=== PATIENT | male | born 1955 | race Caucasian/White ===

== ENCOUNTER 2019-05-08 14:35 | Emergency (ER) | payer SELFPAY ==
[2019-05-08 14:35] VITALS: BP 139/74; PULSE 91; RESP 16; TEMP 36.9; O2SAT 98; BMI 23.5
--- NOTE | 2019-05-08 14:42 | ED_ITS ---
HPI - Male Genitourinary <Amparo Sweeney PA-C - Last Filed: 05/08/19 20:54> General Chief complaint: Urogenital-Male Stated complaint: Left side pain blood in urine Time Seen by Provider: 05/08/19 14:41 Source: patient Mode of arrival: Ambulatory Limitations: no limitations History of Present Illness HPI Narrative: This 63-year-old male complains of onset of sharp, stabbing pain in his left flank last night, states this radiates around his side and down somewhat. He states that after the pain began, he started having hematuria, which has been consistent since. He states he has also had nausea but no vomiting. He states that pain has gotten progressively worse since yesterday. He states he does have dysuria and describes a sensation of sharp or ?gravel? when he urinates and has also had frequency and urgency since yesterday as well. He states the pain occurs throughout the urinary stream. He has not had any fever. He denies any other abdominal pain or back pain. No new injury. Denies chest pain or dyspnea or other new complaints on systems review. Patient notes that he is allergic to Cipro, Toradol, promethazine, no regular medications but has had pain medications with surgeries and tolerates Dilaudid without difficulty Related Data Previous Rx's Medication Instructions Recorded ondansetron HCl [Zofran] 4 mg PO Q8H #4 tab 05/08/19 oxycodone-acetaminophen [Percocet] 1 tab PO Q4-6H PRN #4 tab 05/08/19 tamsulosin [Flomax] 0.4 mg PO DAILY #5 cap 05/08/19 Allergies Allergy/AdvReac Type Severity Reaction Status Date / Time amoxicillin [From Augmentin] Allergy Verified 05/08/19 15:10 ciprofloxacin [From Cipro] Allergy Verified 05/08/19 15:10 clavulanic acid Allergy Verified 05/08/19 15:10 [From Augmentin] ketorolac Allergy Verified 05/08/19 15:10 promethazine Allergy Verified 05/08/19 15:10 Review of Systems <Amparo Sweeney PA-C - Last Filed: 05/08/19 20:54> Review of Systems ROS Unobtainable: All systems reviewed & are unremarkable except as noted in HPI and below PFSH <Amparo Sweeney PA-C - Last Filed: 05/08/19 20:54> Medical History (Updated 05/08/19 @ 16:43 by Amparo Sweeney PA-C) Patient denies significant medical history (Chronic) Surgical History (Updated 05/08/19 @ 15:04 by Amparo Sweeney PA-C) Status post appendectomy (Resolved) Status post ORIF of fracture of ankle (Resolved) Status post thoracotomy (Resolved) Social History Smoking Status: Current every day smoker Social History Smoking Status: Current every day smoker Comment: Current daily smoker, denies ETOH Exam <Amparo Sweeney PA-C - Last Filed: 05/08/19 20:54> Narrative Exam Narrative: GENERAL APPEARANCE: Patient appears uncomfortable, in no distress. HEENT: PERRL, EOMI, no scleral icterus NECK: Supple LUNGS: Clear to auscultation bilaterally. HEART: Rate and rhythm regular, normal S1 and S2, no S3 or S4. ABDOMEN: Soft, nondistended, bowel sounds present x 4 quadrants, no masses palpable, no hepatosplenomegaly. Left upper quadrant and left CVA tender without guarding or rebound, no point tenderness elsewhere EXTREMITIES: No edema, no cyanosis DERMATOLOGIC: No jaundice or exanthem NEUROLOGIC: Alert and oriented with normal speech and coordination Initial Vital Signs Initial Vital Signs: Vital Signs Temperature 98.4 F 05/08/19 14:35 Pulse Rate 91 H 05/08/19 14:35 Respiratory Rate 16 05/08/19 14:35 Blood Pressure 139/74 05/08/19 14:35 Pulse Oximetry 98 05/08/19 14:35 <Gogo Montanez DO - Last Filed: 05/09/19 07:52> Initial Vital Signs Initial Vital Signs: Vital Signs Temperature 98.4 F 05/08/19 14:35 Pulse Rate 91 H 05/08/19 14:35 Respiratory Rate 16 05/08/19 14:35 Blood Pressure 139/74 05/08/19 14:35 Pulse Oximetry 98 05/08/19 14:35 Course <Amparo Sweeney PA-C - Last Filed: 05/08/19 20:54> Course Additional Information: Multiple state [employer] reviewed, patient has not had pr escriptions. He did have improvement in pain and nausea while here. He does have some small stone is, likely another that passed given his hematuria. Discussed importance of follow-up and getting set up with a local PCP for this as well as the anal rectal area thickening noted on his CT and he is agreeable. He was given a dose of Percocet prior to departure as he is not sure that he will be able to afford to get medications at the pharmacy today. Discussed return precautions and he is agreeable if needed Orders Ordered: Discontinued Medications Hydromorphone HCl (Dilaudid) 1 mg IV NOW ONE Stop: 05/08/19 14:55 Last Admin: 05/08/19 15:04 Dose: 1 mg Documented by: ELISEO Sodium Chloride (Normal Saline 0.9%) 1,000 mls @ 1,000 mls/hr IV BOLUS ONE Stop: 05/08/19 15:53 Last Infusion: 05/08/19 16:47 Dose: 0 mls/hr Documented by: Admin: 05/08/19 15:04 Dose: 1,000 mls/hr Documented by: ELISEO Ondansetron HCl (Zofran Odt) 4 mg PO NOW ONE Stop: 05/08/19 14:55 Last Admin: 05/08/19 15:04 Dose: 4 mg Documented by: ELISEO Oxycodone/Acetaminophen (Percocet 5/325) 2 tab PO NOW ONE Stop: 05/08/19 16:10 Last Admin: 05/08/19 16:15 Dose: 2 tab Documented by: ELISEO Tamsulosin HCl (Flomax) 0.4 mg PO NOW ONE Stop: 05/08/19 16:10 Last Admin: 05/08/19 16:16 Dose: 0.4 mg Documented by: ELISEO Vital Signs Vital signs: Vital Signs - 8 hr 05/08/19 14:35 05/08/19 16:57 Temperature 98.4 F Pulse Rate 91 H 62 Respiratory Rate 16 16 Blood Pressure 139/74 123/88 Pulse Oximetry 98 98 <Gogo Montanez DO - Last Filed: 05/09/19 07:52> Orders Ordered: Discontinued Medications Hydromorphone HCl (Dilaudid) 1 mg IV NOW ONE Stop: 05/08/19 14:55 Last Admin: 05/08/19 15:04 Dose: 1 mg Documented by: ELISEO Sodium Chloride (Normal Saline 0.9%) 1,000 mls @ 1,000 mls/hr IV BOLUS ONE Stop: 05/08/19 15:53 Last Infusion: 05/08/19 16:47 Dose: 0 mls/hr Documented by: Admin: 05/08/19 15:04 Dose: 1,000 mls/hr Documented by: ELISEO Ondansetron HCl (Zofran Odt) 4 mg PO NOW ONE Stop: 05/08/19 14:55 Last Admin: 05/08/19 15:04 Dose: 4 mg Documented by: ELISEO Oxycodone/Acetaminophen (Percocet 5/325) 2 tab PO NOW ONE Stop: 05/08/19 16:10 Last Admin: 05/08/19 16:15 Dose: 2 tab Documented by: ELISEO Tamsulosin HCl (Flomax) 0.4 mg PO NOW ONE Stop: 05/08/19 16:10 Last Admin: 05/08/19 16:16 Dose: 0.4 mg Documented by: ELISEO Vital Signs Vital signs: Vital Signs - 8 hr 05/08/19 14:35 05/08/19 16:57 Temperature 98.4 F Pulse Rate 91 H 62 Respiratory Rate 16 16 Blood Pressure 139/74 123/88 Pulse Oximetry 98 98 MDM - Male Genitourinary <Amparo Sweeney PA-C - Last Filed: 05/08/19 20:54> Lab Data Attestation: I reviewed the patient's lab results. Result diagrams: 05/08/19 14:45 05/08/19 14:45 Labs: Lab Results 05/08/19 05/08/19 05/08/19 Range/Units 14:45 14:45 14:45 WBC 6.6 (4.5-11.0) X10^3/uL RBC 4.37 L (4.5-5.9) X10^6/uL Hgb 13.5 (13.5-17.5) g/dL Hct 39.9 L (41-53) % MCV 91.3 (80-100) fL MCH 30.8 (26-34) PG MCHC 33.7 (30-36) % RDW 15.6 H (11.6-14.8) % Plt Count 311 (150-400) X10^3/uL Neut % (Auto) 67.7 (50-75) % Lymph % (Auto) 18.7 L (25-40) % Saunders % (Auto) 9.8 (3-14) % Eos % (Auto) 2.3 (2-4) % Baso % (Auto) 1.5 (0-2) % Neut # (Auto) 4500 (9876-2033) /uL Lymph # (Auto) 1200 (9416-9780) /uL Saunders # (Auto) 600 (0-900) /uL Eos # (Auto) 200 (0-450) /uL Baso # (Auto) 100 (0-100) /uL Sodium 139 (137-145) mmol/L Potassium 4.1 (3.4-5.1) mmol/L Chloride 105 (98-107) mmol/L Carbon Dioxide 23 (22-32) mmol/L BUN 11 (9-20) mg/dL Creatinine 0.80 (0.66-1.25) mg/dL Estimated GFR > 60.0 (>60) mL/min BUN/Creatinine Ratio 13.8 (6-22) Glucose 100 (80-110) mg/dL Calcium 9.3 (8.4-10.2) mg/dL Total Bilirubin 0.5 (0.2-1.3) mg/dL AST 28 (17-59) IU/L ALT 18 L (21-72) IU/L Alkaline Phosphatase 87 (38-126) U/L Total Protein 7.6 (6.3-8.2) g/dL Albumin 4.4 (3.5-5.0) g/dL Globulin 3.2 (1.7-4.1) g/dL Albumin/Globulin Ratio 1.4 (1.0-2.8) Lipase 130 (23-300) U/L Urine RBC 10-30/hpf H (0-5/HPF) Urine WBC None seen (0-5/HPF) Urine Bacteria None seen (None) Ur Culture Indicated? Cult not indicated Urine Dip Bedside Urine Glucose Negative Bedside Urine Bilirubin - Negative Bedside Urine Ketone - Negative Urine Specific [place] 1.005 Bedside Urine Occult Blood +++ Bedside Urine pH 0.2 Bedside Urine Protein +/- 15 Bedside Urine Urobilinogen - Negative Bedside Urine Nitrite - Negative Bedside Urine Leukocytes - Negative Esterase Imaging Data CT scan - abdomen: Radiologist's impression: [address] [address] [address] Scan Report Signed Patient: George Bryant JMR#: [id number] : 5Acct:[id number] Age/Sex: 63 / MDate of Service: 05/08/19 Loc: ED Accession Number: [id number] Procedure: CT kidney ureter bladder (KUB) Ordering Provider: Amparo Sweeney P.A-C PROCEDURE: CT KIDNEY URETER BLADDER (KUB) INDICATIONS: L. flank pain, hematuria TECHNIQUE: Noncontrast 5 mm thick sections acquired from the diaphragms to the symphysis. 5 mm thick coronal and sagittal reformats were then performed. For radiation dose reduction, the following was used: automated exposure control, adjustment of mA and/or kV according to patient size. COMPARISON: None. FINDINGS: Image quality: Excellent. Lung bases: Left basilar scars and atelectasis. Heart size is normal. Tiny half hernia. Urinary system: There are couple of small 1-2 mm calcifications in the left kidney. There is trace left hydronephrosis. No definitive left ureter stones are identified. Both kidneys are normal in size. Both ureters appear non-dilated throughout their expected courses. Bladder wall thickness is normal; no calcified bladder stones. Other solid organs: Liver is normal in size. Gallbladder is normal. Pancreas is normal in contours. Spleen is normal in size. No adrenal nodules. Peritoneum and bowel: Unenhanced bowel loops demonstrate normal wall thickness and caliber. There is a large amount of stool in colon. Scattered colonic diverticula are present. No CT findings to suggest acute diverticulitis. There is thickening at the rectoanal junction. No free fluid or air. Nodes and vessels: No retroperitoneal or mesenteric adenopathy by size criteria. Aorta and inferior vena cava are normal in caliber. Abdominal wall: No ventral hernias. Pelvis: No free pelvic fluid. No inguinal hernias or adenopathy. Bones: No suspicious bony lesions. No vertebral body compression fractures. Severe degenerative disc disease at L5-S1. IMPRESSION: 1. A couple of 1-2 stones in left kidney. There is trace left hydronephrosis. No left ureteral stones are identified. No stones seen in the bladder. The patient may have recently passed stone given history of left flank pain hematuria. 2. Diverticulosis without diverticulitis. 3. Thickening at the rectoanal juntion. Cannot rule out mass. Endoscopic exam is suggested for followup. 4. Large amount of stool in colon. Dictated by: Felicia See M.D. on 05/08/2019 at 15:33 Approved by: Felicia See M.D. on 05/08/2019 at 15:44 <Gogo Montanez DO - Last Filed: 05/09/19 07:52> Lab Data Labs: Lab Results 05/08/19 05/08/19 05/08/19 Range/Units 14:45 14:45 14:45 WBC 6.6 (4.5-11.0) X10^3/uL RBC 4.37 L (4.5-5.9) X10^6/uL Hgb 13.5 (13.5-17.5) g/dL Hct 39.9 L (41-53) % MCV 91.3 (80-100) fL MCH 30.8 (26-34) PG MCHC 33.7 (30-36) % RDW 15.6 H (11.6-14.8) % Plt Count 311 (150-400) X10^3/uL Neut % (Auto) 67.7 (50-75) % Lymph % (Auto) 18.7 L (25-40) % Saunders % (Auto) 9.8 (3-14) % Eos % (Auto) 2.3 (2-4) % Baso % (Auto) 1.5 (0-2) % Neut # (Auto) 4500 (6343-7233) /uL Lymph # (Auto) 1200 (2130-2403) /uL Saunders # (Auto) 600 (0-900) /uL Eos # (Auto) 200 (0-450) /uL Baso # (Auto) 100 (0-100) /uL Sodium 139 (137-145) mmol/L Potassium 4.1 (3.4-5.1) mmol/L Chloride 105 (98-107) mmol/L Carbon Dioxide 23 (22-32) mmol/L BUN 11 (9-20) mg/dL Creatinine 0.80 (0.66-1.25) mg/dL Estimated GFR > 60.0 (>60) mL/min BUN/Creatinine Ratio 13.8 (6-22) Glucose 100 (80-110) mg/dL Calcium 9.3 (8.4-10.2) mg/dL Total Bilirubin 0.5 (0.2-1.3) mg/dL AST 28 (17-59) IU/L ALT 18 L (21-72) IU/L Alkaline Phosphatase 87 (38-126) U/L Total Protein 7.6 (6.3-8.2) g/dL Albumin 4.4 (3.5-5.0) g/dL Globulin 3.2 (1.7-4.1) g/dL Albumin/Globulin Ratio 1.4 (1.0-2.8) Lipase 130 (23-300) U/L Urine RBC 10-30/hpf H (0-5/HPF) Urine WBC None seen (0-5/HPF) Urine Bacteria None seen (None) Ur Culture Indicated? Cult not indicated Urine Dip Bedside Urine Glucose Negative Bedside Urine Bilirubin - Negative Bedside Urine Ketone - Negative Urine Specific [place] 1.005 Bedside Urine Occult Blood +++ Bedside Urine pH 0.2 Bedside Urine Protein +/- 15 Bedside Urine Urobilinogen - Negative Bedside Urine Nitrite - Negative Bedside Urine Leukocytes - Negative Esterase Discharge Plan Departure Patient Disposition: Home Clinical Impression: Kidney stone on left side Discharge Date/Time: 05/08/19 16:58 Instructions: DI for Kidney Stones Activity Restrictions/Additional Instructions: You had some tiny kidney stones today on the left side, and it is possible that a larger stone or stones past prior to your CT scan. I suspect that your pain should largely resolved from here as we did not see any other source for it on testing. Does not appear that you have a urinary infection. We have given you pain Medicine and Flomax to help the stone pass, and this may be sufficient for the evening. I have given you a prescription for a little more pain medicine and Flomax as well as nausea medicine if you need to fill this tonight or tomorrow. Tomorrow morning, please call the health human resources representative at [phone], let them know you were seen in the emergency room and we would like you to see a local primary care provider for follow-up in the next week. Your urine should be rechecked, and if you continue to have bleeding or pain, they can help you with a urology referral. In addition, as we talked about, there was some thickening in the anal/rectal area noted on your CT scan, and it is recommended that this be followed up colonoscopy to make sure there is no tumor or other cause of this. Your new primary care provider can help with a referral for this as well. As we discussed, you should return in the interim if you have acutely worsening pain again or new symptoms such as protracted vomiting or fever. Prescriptions: New tamsulosin [Flomax] 0.4 mg capsule 0.4 mg PO DAILY Qty: 5 RF: 0 oxycodone-acetaminophen [Percocet] 5-325 mg tablet 1 tab PO Q4-6H PRN (Reason: acute kidney pain) Qty: 4 RF: 0 ondansetron HCl [Zofran] 4 mg tablet 4 mg PO Q8H Qty: 4 RF: 0
--- NOTE | 2019-05-08 14:58 | DI.CT.S_ITS ---
PROCEDURE: CT KIDNEY URETER BLADDER (KUB) INDICATIONS: L. flank pain, hematuria TECHNIQUE: Noncontrast 5 mm thick sections acquired from the diaphragms to the symphysis. 5 mm thick coronal and sagittal reformats were then performed. For radiation dose reduction, the following was used: automated exposure control, adjustment of mA and/or kV according to patient size. COMPARISON: None. FINDINGS: Image quality: Excellent. Lung bases: Left basilar scars and atelectasis. Heart size is normal. Tiny half hernia. Urinary system: There are couple of small 1-2 mm calcifications in the left kidney. There is trace left hydronephrosis. No definitive left ureter stones are identified. Both kidneys are normal in size. Both ureters appear non-dilated throughout their expected courses. Bladder wall thickness is normal; no calcified bladder stones. Other solid organs: Liver is normal in size. Gallbladder is normal. Pancreas is normal in contours. Spleen is normal in size. No adrenal nodules. Peritoneum and bowel: Unenhanced bowel loops demonstrate normal wall thickness and caliber. There is a large amount of stool in colon. Scattered colonic diverticula are present. No CT findings to suggest acute diverticulitis. There is thickening at the rectoanal junction. No free fluid or air. Nodes and vessels: No retroperitoneal or mesenteric adenopathy by size criteria. Aorta and inferior vena cava are normal in caliber. Abdominal wall: No ventral hernias. Pelvis: No free pelvic fluid. No inguinal hernias or adenopathy. Bones: No suspicious bony lesions. No vertebral body compression fractures. Severe degenerative disc disease at L5-S1. IMPRESSION: 1. A couple of 1-2 stones in left kidney. There is trace left hydronephrosis. No left ureteral stones are identified. No stones seen in the bladder. The patient may have recently passed stone given history of left flank pain hematuria. 2. Diverticulosis without diverticulitis. 3. Thickening at the rectoanal juntion. Cannot rule out mass. Endoscopic exam is suggested for followup. 4. Large amount of stool in colon. Dictated by: Felicia See M.D. on 05/08/2019 at 15:33 Approved by: Felicia See M.D. on 05/08/2019 at 15:44
[2019-05-08 15:04] LABS: Add Manual Diff / Slide Review NO; Basophils Absolute Auto 100 /uL (0-100); Basophils Percent Auto 1.5 % (0-2); Eosinophils Absolute Auto 200 /uL (0-450); Eosinophils Percent Auto 2.3 % (2-4); Hematocrit 39.9 % (41-53); Hemoglobin 13.5 g/dL (13.5-17.5); Lymphocytes Absolute Auto 1200 /uL (1100-4500); Lymphocytes Percent Auto 18.7 % (25-40); Mean Corpuscular HGB Conc 33.7 % (30-36); Mean Corpuscular Hemoglobin 30.8 PG (26-34); Mean Corpuscular Volume 91.3 fL (80-100); Monocytes Absolute Auto 600 /uL (0-900); Monocytes Percent Auto 9.8 % (3-14); Neutrophils Absolute Auto 4500 /uL (1500-7000); Neutrophils Percent Auto 67.7 % (50-75); Platelet Count 311 X10^3/uL (150-400); Red Blood Cell Count 4.37 X10^6/uL (4.5-5.9); Red Cell Distribution Width 15.6 % (11.6-14.8); White Blood Cell Count 6.6 X10^3/uL (4.5-11.0)
[2019-05-08] MEDS: ONDANSETRON 4 MG ODT PO (15:04)
[2019-05-08] MEDS: SODIUM CHLORIDE 0.9% 1,000 ML 1000 ML IV (15:04)
[2019-05-08] MEDS: HYDROMORPHONE 1 MG INJ IV (15:04)
[2019-05-08 15:12] LABS: Alanine Aminotransferase 18 IU/L (21-72); Albumin 4.4 g/dL (3.5-5.0); Albumin Globulin Ratio 1.4 (1.0-2.8); Alkaline Phosphatase 87 U/L (38-126); Aspartate Aminotransferase 28 IU/L (17-59); BUN Creatinine Ratio 13.8 (6-22); Bilirubin Total 0.5 mg/dL (0.2-1.3); Blood Urea Nitrogen 11 mg/dL (9-20); Calcium 9.3 mg/dL (8.4-10.2); Carbon Dioxide 23 mmol/L (22-32); Chloride 105 mmol/L (98-107); Estimated Glomerular Filt Rate > 60.0 mL/min (>60); Globulin 3.2 g/dL (1.7-4.1); Glucose 100 mg/dL (80-110); HEMOLYSIS < 15 (0-50); Lipase 130 U/L (23-300); Potassium 4.1 mmol/L (3.4-5.1); Sodium 139 mmol/L (137-145); Total Protein 7.6 g/dL (6.3-8.2)
[2019-05-08 15:21] LABS: Bacteria Urine None Seen; WBC Urine None Seen (0-5/HPF)
[2019-05-08 15:31] LABS: Culture Indicated Urine Cult Not Indicated; RBC Urine 10-30/HPF (0-5/HPF)
[2019-05-08] MEDS: OXYCODONE/ACETAMINOPHEN 5/325 TABLET 2 TAB PO (16:15)
[2019-05-08] MEDS: TAMSULOSIN 0.4 MG CAPSULE PO (16:16)
[2019-05-08 16:57] VITALS: BP 123/88; PULSE 62; RESP 16; O2SAT 98
== END 2019-05-08 16:58 | disposition home or self-care (01) ==
PROVIDERS: Emergency Provider Internal Medicine
DX: N20.0 Calculus of kidney (principal)
CPT/HCPCS: 36415; 74176; 80053; 81003; 81015; 83690; 85025; 96361; 96374; 99283; 99284; J1170

== ENCOUNTER 2019-05-30 12:08 | Emergency (ER) | payer SELFPAY ==
[2019-05-30 12:11] VITALS: BP 146/100; PULSE 83; RESP 18; TEMP 36.6; O2SAT 100
--- NOTE | 2019-05-30 12:26 | ED.MALEGU ---
HPI - Male Genitourinary General Chief complaint: Urogenital-Male Stated complaint: abdominal pain with blood in urine Time Seen by Provider: 05/30/19 12:11 Source: patient Mode of arrival: Ambulatory Limitations: no limitations History of Present Illness HPI Narrative: Patient comes emergency department complaining of bilateral flank pain, hematuria, and dysuria for the last couple of days. Patient denies fevers. He states he has some nausea. No chest pain, shortness of breath, cough, or upper respiratory symptoms. Patient denies any diarrhea. No blood in his stools. Patient states he has had regular bowel movements every day, as usual. No other complaints at this time. Patient states he has a history of possible kidney stone but that this was never verified with certainty. Related Data Previous Rx's Medication Instructions Recorded tamsulosin [Flomax] 0.4 mg PO DAILY #5 cap 05/08/19 hydrocodone-acetaminophen [[place]] 1 tab PO Q8H PRN #6 tab 05/30/19 ondansetron 4 mg PO Q6H PRN #14 tab 05/30/19 Allergies Allergy/AdvReac Type Severity Reaction Status Date / Time amoxicillin [From Augmentin] Allergy Verified 05/30/19 12:16 ciprofloxacin [From Cipro] Allergy Verified 05/30/19 12:16 clavulanic acid Allergy Verified 05/30/19 12:16 [From Augmentin] ketorolac Allergy Verified 05/30/19 12:16 promethazine Allergy Verified 05/30/19 12:16 Review of Systems Constitutional Constitutional: Denies chills, Denies fatigue, Denies fever(s), Denies frequent falls, Denies lethargy and Denies weakness Eyes Eyes: Denies change in vision, Denies eye discharge, Denies irritation and Denies loss of vision ENT Ears, Nose, Mouth, and Throat: Denies change in voice, Denies dizziness, Denies neck pain, Denies sore throat and Denies throat swelling Cardiovascular Cardiovascular: Denies chest pain, Denies irregular heart rhythm, Denies lightheadedness, Denies palpitations, Denies dyspnea, Denies dyspnea on exertion and Denies orthopnea Respiratory Respiratory: Denies cough, Denies dyspnea, Denies dyspnea on exertion and Denies wheezing Gastrointestinal Gastrointestinal: Reports abdominal pain (Right lower, bilateral flanks), Denies change in bowel habits, Denies diarrhea, Reports nausea and Denies vomiting Genitourinary Genitourinary: Denies hematuria, Reports dysuria, Denies flank pain, Denies urinary incontinence and Denies urinary urgency Musculoskeletal Musculoskeletal: Denies back pain, Denies muscle weakness, Denies neck pain, Denies numbness and Denies tingling Integumentary/Breasts Skin/Breast: Denies pruritus, Denies erythema, Denies rash and Denies wounds Neurologic Neurologic: Denies behavioral changes, Denies confusion, Denies dizziness, Denies frequent falls, Denies loss of vision, Denies numbness, Denies tingling and Denies weakness Psychiatric Psychiatric: Denies anxiety, Denies behavioral changes, Denies confusion, Denies depression, Denies homicidal ideation and Denies suicidal ideation Endocrine Endocrine: Denies fatigue, Denies flushing and Denies palpitations Hematologic/Lymphatic Hematologic/Lymphatic: Denies easy bruising Allergic/Immunologic Allergic/Immunologic: Denies urticaria, Denies throat swelling and Denies wheezing Patient History Medical History Patient denies significant medical history (Chronic) Surgical History Status post appendectomy (Resolved) Status post ORIF of fracture of ankle (Resolved) Status post thoracotomy (Resolved) Social History Smoking Status: Current every day smoker Social History Smoking Status: Current every day smoker alcohol intake frequency: 0-2 drinks per day Substance Use Type: does not use Exam Initial Vital Signs Initial Vital Signs: Vital Signs Temperature 97.8 F 05/30/19 12:11 Pulse Rate 83 05/30/19 12:11 Respiratory Rate 18 05/30/19 12:11 Blood Pressure 146/100 H 05/30/19 12:11 Pulse Oximetry 100 05/30/19 12:11 Const General: cooperative and well developed Nutritional Appearance: well nourished Orientation: alert, awake, oriented x3 and not confused HENMT Head: normocephalic and atraumatic Ears: external ears normal and TM's normal bilaterally Nose: external nose normal and No nasal discharge Face and sinus: sinuses nontender, face symmetric, no sinus tenderness and No dry mucous membranes Mouth: oral mucosae normal and moist mucous membranes Teeth and gingiva: dentition normal Throat: tonsils normal and uvula midline Eyes General: appearance normal, both eyes and all related structures Eyelids: eyelids normal Conjunctivae: conjunctivae normal Sclera: sclerae normal Pupils: PERRL EOM: EOM intact bilaterally Neck Neck: normal visual inspection, trachea midline, No lymphadenopathy, No midline deformity and No JVD Lymphatic: No lymphedema Chest Chest: normal inspection of the chest Resp Effort & Inspection: normal respiratory effort, able to speak in complete sentences, no respiratory distress and no use of accessory muscles Auscultation: clear to auscultation bilaterally, no rales, no rhonchi and no wheezes Cardio Rate: regular rate Rhythm: regular rhythm Heart Sounds: no click, no gallops, no murmurs and no rubs Pulses: normal peripheral pulses GI Inspection: non-distended Palpation: soft, no hepatosplenomegaly, No guarding, No pulsatile mass and tender (Mild, epigastric, left upper quadrant, and right flank.) Back/Spine/Pelvis Back: No CVA tenderness Cervical Spine: cervical ROM normal and No pain with cervical ROM Thoracic/Lumbar Spine: thoracic and lumbar spine normal to inspection Skin General: no rashes or lesions noted, No jaundice and No petechiae Neuro General: alert, oriented x3, gait normal and no focal motor deficits Speech: speech normal Extrem General: full ROM, no clubbing, cyanosis or edema, no pedal edema and no calf tenderness Psych Appearance: well kempt Mental Status: mental status grossly normal Attitude: cooperative Thought Content: normal and suicidality Judgment: judgment good Course Course Course Narrative: Patient is evaluated in the emergency department and worked up with labs and urinalysis. CT scan was performed and unremarkable, but labs did show a mild elevation of the patient's lipase. I discussed this with the patient, who had been treated symptomatically with IV fluids and Dilaudid in the emergency department. He was advised that he will need to follow a clear liquid diet for the next couple of days before slowly reintroducing low-fat foods. I have discussed with the patient that he does not currently have any kidney stones visible. He should follow up with his primary care physician for further evaluation, if needed. We have discussed the usual indications for return to the emergency department. Orders Ordered: Discontinued Medications Hydromorphone HCl (Dilaudid) 0.5 mg IV NOW ONE Stop: 05/30/19 12:26 Last Admin: 05/30/19 13:10 Dose: 0.5 mg Documented by: RADHA Hydromorphone HCl (Dilaudid) 0.5 mg IV NOW ONE Stop: 05/30/19 15:11 Last Admin: 05/30/19 15:18 Dose: 0.5 mg Documented by: FAWN Sodium Chloride (Normal Saline 0.9%) 1,000 mls @ 1,000 mls/hr IV BOLUS ONE Stop: 05/30/19 13:24 Last Infusion: 05/30/19 14:12 Dose: 0 mls/hr Documented by: Admin: 05/30/19 13:11 Dose: 1,000 mls/hr Documented by: RADHA Ondansetron HCl (Zofran) 4 mg IV NOW ONE Stop: 05/30/19 12:26 Last Admin: 05/30/19 13:11 Dose: 4 mg Documented by: RADHA Vital Signs Vital signs: Vital Signs - 8 hr 05/30/19 12:11 Temperature 97.8 F Pulse Rate 83 Respiratory Rate 18 Blood Pressure 146/100 H Pulse Oximetry 100 MDM - Male Genitourinary Medical Records Attestation: I reviewed the patient's medical records. Lab Data Attestation: I reviewed the patient's lab results. Result diagrams: 05/30/19 12:30 05/30/19 12:30 Labs: Lab Results 05/30/19 05/30/19 05/30/19 Range/Units 12:30 12:30 12:30 WBC 5.2 (4.5-11.0) X10^3/uL RBC 4.45 L (4.5-5.9) X10^6/uL Hgb 13.5 (13.5-17.5) g/dL Hct 41.1 (41-53) % MCV 92.4 (80-100) fL MCH 30.3 (26-34) PG MCHC 32.8 (30-36) % RDW 14.7 (11.6-14.8) % Plt Count 266 (150-400) X10^3/uL Neut % (Auto) 59.8 (50-75) % Lymph % (Auto) 23.0 L (25-40) % [place] % (Auto) 12.7 (3-14) % Eos % (Auto) 3.0 (2-4) % Baso % (Auto) 1.5 (0-2) % Neut # (Auto) 3100 (5070-0544) /uL Lymph # (Auto) 1200 (7844-8102) /uL [place] # (Auto) 700 (0-900) /uL Eos # (Auto) 200 (0-450) /uL Baso # (Auto) 100 (0-100) /uL PT 10.0 L (10.1-12.7) SECONDS INR 0.9 (0.9-1.3) APTT 29 (26.4-36.2) SECONDS Sodium 139 (137-145) mmol/L Potassium 4.1 (3.4-5.1) mmol/L Chloride 104 (98-107) mmol/L Carbon Dioxide 26 (22-32) mmol/L BUN 13 (9-20) mg/dL Creatinine 0.80 (0.66-1.25) mg/dL Estimated GFR > 60.0 (>60) mL/min BUN/Creatinine Ratio 16.3 (6-22) Glucose 95 (80-110) mg/dL Calcium 9.4 (8.4-10.2) mg/dL Total Bilirubin 0.4 (0.2-1.3) mg/dL AST 30 (17-59) IU/L ALT 17 L (21-72) IU/L Alkaline Phosphatase 87 (38-126) U/L Total Protein 8.1 (6.3-8.2) g/dL Albumin 4.7 (3.5-5.0) g/dL Globulin 3.4 (1.7-4.1) g/dL Albumin/Globulin Ratio 1.4 (1.0-2.8) Lipase 812 H (23-300) U/L Urine RBC (0-5/HPF) Urine WBC (0-5/HPF) Urine Bacteria (None) Ur Culture Indicated? 05/30/19 Range/Units 13:15 WBC (4.5-11.0) X10^3/uL RBC (4.5-5.9) X10^6/uL Hgb (13.5-17.5) g/dL Hct (41-53) % MCV (80-100) fL MCH (26-34) PG MCHC (30-36) % RDW (11.6-14.8) % Plt Count (150-400) X10^3/uL Neut % (Auto) (50-75) % Lymph % (Auto) (25-40) % [place] % (Auto) (3-14) % Eos % (Auto) (2-4) % Baso % (Auto) (0-2) % Neut # (Auto) (9222-5684) /uL Lymph # (Auto) (1969-8613) /uL [place] # (Auto) (0-900) /uL Eos # (Auto) (0-450) /uL Baso # (Auto) (0-100) /uL PT (10.1-12.7) SECONDS INR (0.9-1.3) APTT (26.4-36.2) SECONDS Sodium (137-145) mmol/L Potassium (3.4-5.1) mmol/L Chloride (98-107) mmol/L Carbon Dioxide (22-32) mmol/L BUN (9-20) mg/dL Creatinine (0.66-1.25) mg/dL Estimated GFR (>60) mL/min BUN/Creatinine Ratio (6-22) Glucose (80-110) mg/dL Calcium (8.4-10.2) mg/dL Total Bilirubin (0.2-1.3) mg/dL AST (17-59) IU/L ALT (21-72) IU/L Alkaline Phosphatase (38-126) U/L Total Protein (6.3-8.2) g/dL Albumin (3.5-5.0) g/dL Globulin (1.7-4.1) g/dL Albumin/Globulin Ratio (1.0-2.8) Lipase (23-300) U/L Urine RBC 10-30/hpf H (0-5/HPF) Urine WBC 5-10/hpf H (0-5/HPF) Urine Bacteria None seen (None) Ur Culture Indicated? Specimen cultured Urine Dip Bedside Urine Glucose Negative Bedside Urine Bilirubin - Negative Bedside Urine Ketone - Negative Urine Specific [place] 1.005 Bedside Urine Occult Blood +++ Bedside Urine pH 7.5 Bedside Urine Protein +/- 15 Bedside Urine Urobilinogen - Negative Bedside Urine Nitrite - Negative Bedside Urine Leukocytes - Negative Esterase Imaging Data CT scan - abdomen: Radiologist's impression: PROCEDURE: CT KIDNEY URETER BLADDER (KUB) INDICATIONS: R flank pain, hematuria TECHNIQUE: Noncontrast 5 mm thick sections acquired from the diaphragms to the symphysis. 5 mm thick coronal and sagittal reformats were then performed. For radiation dose reduction, the following was used: automated exposure control, adjustment of mA and/or kV according to patient size. COMPARISON: None. FINDINGS: Image quality: Excellent. Lung bases: Lung bases are clear. Heart size is normal. Urinary system: Both kidneys are normal in size. No kidney stones. No hydronephrosis or perinephric fat stranding. Both ureters appear non-dilated throughout their expected courses. Bladder wall is mildly thickened and slightly irregular.; no calcified bladder stones. Other solid organs: Liver is normal in size. Gallbladder is within normal limits. Pancreas is normal in contours. Spleen is normal in size. No adrenal nodules. Peritoneum and bowel: Unenhanced bowel loops demonstrate normal wall thickness and caliber. Few scattered diverticuli noted in the colon without evidence of diverticulitis. No free fluid or air. The appendix is not definitely visualized, no free fluid or inflammatory changes are noted in the region of the cecum. Nodes and vessels: No retroperitoneal or mesenteric adenopathy by size criteria. Aorta and inferior vena cava are normal in caliber. Scattered atherosclerotic calcifications involving the abdominal and pelvic vasculature. Abdominal wall: No ventral hernias. Pelvis: No free pelvic fluid. No inguinal hernias or adenopathy. Bones: No suspicious bony lesions. No vertebral body compression fractures. Spine degenerative disc disease and facet arthropathy. IMPRESSION: 1. Mild, urinary bladder wall thickening and irregularity which could be due to nonspecific cystitis or less likely infiltrating neoplasm. Recommend urology consultation for possible cystoscopy. 2. No renal stone or hydronephrosis. 3. Colonic diverticulosis without evidence of diverticulitis. 4. The appendix is not definitely visualized. No free fluid or inflammatory changes are noted adjacent to the cecum. Dictated by: Stacy Natarajan MD, PhD on 05/30/2019 at 12:47 Approved by: Stacy Natarajan MD, PhD on 05/30/2019 at 12:54 Discharge Plan Departure Patient Disposition: Home Clinical Impression: Acute pancreatitis Qualifiers: Pancreatitis type: idiopathic Acute pancreatitis complication: no infection or necrosis Qualified Code(s): K85.00 - Idiopathic acute pancreatitis without necrosis or infection Discharge Date/Time: 05/30/19 15:31 Instructions: Clear Liquid Diet, DI for Pancreatitis Activity Restrictions/Additional Instructions: Your CT scan looks good. Your labs are positive for pancreatitis, an inflammation of the pancreas. This can come about by a variety of causes, in your case either viral or uncertain. Generally, pancreatitis is self-limited, but requires that the pancreas be rested for at least couple of days. To do this, you will need to stay on a clear liquid diet for the next 2 days. If you are feeling better, you may carefully reintroduce foods after the 2 day period is up. Avoid eating anything that is high fat for the 1st several days after starting to eat again. You may take the pain and nausea medications, as needed. Prescriptions: New ondansetron 4 mg tablet,disintegrating 4 mg PO Q6H PRN (Reason: nausea and vomiting) Qty: 14 RF: 0 hydrocodone-acetaminophen [[place]] 5-325 mg tablet 1 tab PO Q8H PRN (Reason: pain) Qty: 6 RF: 0 No Action tamsulosin [Flomax] 0.4 mg capsule 0.4 mg PO DAILY Qty: 5 RF: 0 Referrals: [facility] [Provider Group]
[2019-05-30 12:45] LABS: Add Manual Diff / Slide Review NO; Basophils Absolute Auto 100 /uL (0-100); Basophils Percent Auto 1.5 % (0-2); Eosinophils Absolute Auto 200 /uL (0-450); Hematocrit 41.1 % (41-53); Hemoglobin 13.5 g/dL (13.5-17.5); Lymphocytes Absolute Auto 1200 /uL (1100-4500); Mean Corpuscular HGB Conc 32.8 % (30-36); Mean Corpuscular Hemoglobin 30.3 PG (26-34); Mean Corpuscular Volume 92.4 fL (80-100); Monocytes Absolute Auto 700 /uL (0-900); Monocytes Percent Auto 12.7 % (3-14); Neutrophils Absolute Auto 3100 /uL (1500-7000); Neutrophils Percent Auto 59.8 % (50-75); Platelet Count 266 X10^3/uL (150-400); Red Blood Cell Count 4.45 X10^6/uL (4.5-5.9); Red Cell Distribution Width 14.7 % (11.6-14.8); White Blood Cell Count 5.2 X10^3/uL (4.5-11.0)
[2019-05-30 12:51] LABS: INR 0.9 (0.9-1.3)
[2019-05-30 12:54] LABS: PTT Partial Thromboplastin Tim 29 SECONDS (26.4-36.2)
[2019-05-30 13:00] VITALS: BP 143/95; PULSE 78; RESP 17; O2SAT 100
[2019-05-30 13:02] LABS: Alanine Aminotransferase 17 IU/L (21-72); Albumin 4.7 g/dL (3.5-5.0); Albumin Globulin Ratio 1.4 (1.0-2.8); Alkaline Phosphatase 87 U/L (38-126); Aspartate Aminotransferase 30 IU/L (17-59); BUN Creatinine Ratio 16.3 (6-22); Bilirubin Total 0.4 mg/dL (0.2-1.3); Blood Urea Nitrogen 13 mg/dL (9-20); Calcium 9.4 mg/dL (8.4-10.2); Carbon Dioxide 26 mmol/L (22-32); Chloride 104 mmol/L (98-107); Estimated Glomerular Filt Rate > 60.0 mL/min (>60); Globulin 3.4 g/dL (1.7-4.1); Glucose 95 mg/dL (80-110); HEMOLYSIS < 15 (0-50); Lipase 812 U/L (23-300); Potassium 4.1 mmol/L (3.4-5.1); Sodium 139 mmol/L (137-145); Total Protein 8.1 g/dL (6.3-8.2)
[2019-05-30] MEDS: HYDROMORPHONE 0.5 MG INJ IV ×2 (13:10→15:18)
[2019-05-30] MEDS: ONDANSETRON 4 MG/2 ML INJ IV (13:11)
[2019-05-30] MEDS: SODIUM CHLORIDE 0.9% 1,000 ML 1000 ML IV (13:11)
--- NOTE | 2019-05-30 13:27 | DI.CT.S_ITS ---
PROCEDURE: CT KIDNEY URETER BLADDER (KUB) INDICATIONS: R flank pain, hematuria TECHNIQUE: Noncontrast 5 mm thick sections acquired from the diaphragms to the symphysis. 5 mm thick coronal and sagittal reformats were then performed. For radiation dose reduction, the following was used: automated exposure control, adjustment of mA and/or kV according to patient size. COMPARISON: None. FINDINGS: Image quality: Excellent. Lung bases: Lung bases are clear. Heart size is normal. Urinary system: Both kidneys are normal in size. No kidney stones. No hydronephrosis or perinephric fat stranding. Both ureters appear non-dilated throughout their expected courses. Bladder wall is mildly thickened and slightly irregular.; no calcified bladder stones. Other solid organs: Liver is normal in size. Gallbladder is within normal limits. Pancreas is normal in contours. Spleen is normal in size. No adrenal nodules. Peritoneum and bowel: Unenhanced bowel loops demonstrate normal wall thickness and caliber. Few scattered diverticuli noted in the colon without evidence of diverticulitis. No free fluid or air. The appendix is not definitely visualized, no free fluid or inflammatory changes are noted in the region of the cecum. Nodes and vessels: No retroperitoneal or mesenteric adenopathy by size criteria. Aorta and inferior vena cava are normal in caliber. Scattered atherosclerotic calcifications involving the abdominal and pelvic vasculature. Abdominal wall: No ventral hernias. Pelvis: No free pelvic fluid. No inguinal hernias or adenopathy. Bones: No suspicious bony lesions. No vertebral body compression fractures. Spine degenerative disc disease and facet arthropathy. IMPRESSION: 1. Mild, urinary bladder wall thickening and irregularity which could be due to nonspecific cystitis or less likely infiltrating neoplasm. Recommend urology consultation for possible cystoscopy. 2. No renal stone or hydronephrosis. 3. Colonic diverticulosis without evidence of diverticulitis. 4. The appendix is not definitely visualized. No free fluid or inflammatory changes are noted adjacent to the cecum. Dictated by: Stacy Natarajan MD, PhD on 05/30/2019 at 12:47 Approved by: Stacy Natarajan MD, PhD on 05/30/2019 at 12:54
[2019-05-30 13:56] LABS: Bacteria Urine None Seen
[2019-05-30 14:12] LABS: Culture Indicated Urine Specimen Cultured; RBC Urine 10-30/HPF (0-5/HPF); WBC Urine 5-10/HPF (0-5/HPF)
[2019-05-30 14:56] VITALS: BP 137/90; PULSE 80; RESP 16; O2SAT 100
[2019-05-30 15:00] VITALS: BP 157/85; PULSE 96; RESP 13; O2SAT 97
== END 2019-05-30 15:31 | disposition home or self-care (01) ==
PROVIDERS: Emergency Provider Emergency Medicine
DX: K85.00 Idiopathic acute pancreatitis without necrosis or infection (principal); R31.9 Hematuria, unspecified; R10.9 Unspecified abdominal pain
CPT/HCPCS: 36415; 74176; 80053; 81003; 81015; 83690; 85025; 85610; 85730; 87077; 87086; 87147; 87186; 96361; 96374; 96375; 96376; 99283; 99284; J1170; J2405

== ENCOUNTER 2019-06-08 12:03 | Emergency (ER) | payer SELFPAY ==
[2019-06-08 12:08] VITALS: BP 147/87; PULSE 83; RESP 14; TEMP 36.7; O2SAT 100
--- NOTE | 2019-06-08 12:27 | ED_ITS ---
HPI - General Adult General Chief complaint: Abdominal Pain Stated complaint: pancreatits,further issues and pain Time Seen by Provider: 06/08/19 12:23 Source: patient Mode of arrival: Ambulatory Limitations: no limitations History of Present Illness HPI narrative: 63-year-old male here for evaluation of abdominal pain. He was seen here in the emergency department approximately 9 days ago[address] Had a CT scan of his abdomen performed showed no signs of kidney stones. He did have an elevated lipase. Was given 6 doses of pain medication. Was given instructions on a clear liquid diet. States since that time he has made an appointment with a GI provider. He does not have a primary care provider. He returns today for continued abdominal pain and blood in his urine. Related Data Previous Rx's Medication Instructions Recorded tamsulosin [Flomax] 0.4 mg PO DAILY #5 cap 05/08/19 hydrocodone-acetaminophen [[place]] 1 tab PO Q8H PRN #6 tab 05/30/19 ondansetron 4 mg PO Q6H PRN #14 tab 05/30/19 Allergies Allergy/AdvReac Type Severity Reaction Status Date / Time amoxicillin [From Augmentin] Allergy Verified 05/30/19 12:16 ciprofloxacin [From Cipro] Allergy Verified 05/30/19 12:16 clavulanic acid Allergy Verified 05/30/19 12:16 [From Augmentin] ketorolac Allergy Verified 05/30/19 12:16 promethazine Allergy Verified 05/30/19 12:16 ibuprofen AdvReac Intermediate Nausea Verified 06/08/19 12:11 Review of Systems Constitutional Constitutional: Denies chills and Denies headache(s) ENT Ears, Nose, Mouth, and Throat: Denies headache(s) Cardiovascular Cardiovascular: Denies chest pain and Denies dyspnea Respiratory Respiratory: Denies dyspnea Gastrointestinal Gastrointestinal: Reports abdominal pain, Denies nausea and Denies vomiting Genitourinary Genitourinary: Reports hematuria Musculoskeletal Musculoskeletal: Denies myalgias and Denies arthralgias Integumentary/Breasts Skin/Breast: Denies lesions and Denies rash Neurologic Neurologic: Denies behavioral changes and Denies headache(s) Psychiatric Psychiatric: Denies behavioral changes Hematologic/Lymphatic Hematologic/Lymphatic: Denies easy bleeding and Denies easy bruising Patient History Medical History Patient denies significant medical history (Chronic) Surgical History Status post appendectomy (Resolved) Status post ORIF of fracture of ankle (Resolved) Status post thoracotomy (Resolved) Social History Smoking Status: Current every day smoker alcohol intake frequency: 0-2 drinks per day Substance Use Type: does not use Exam Initial Vital Signs Initial Vital Signs: Vital Signs Temperature 98.1 F 06/08/19 12:08 Pulse Rate 83 06/08/19 12:08 Respiratory Rate 14 06/08/19 12:08 Blood Pressure 147/87 H 06/08/19 12:08 Pulse Oximetry 100 06/08/19 12:08 Const General: cooperative and comfortable Orientation: alert and awake HENCO Head: normal to inspection and normocephalic GI Inspection: non-distended Palpation: soft, No firm and tender (Generalized) Skin Lesions: no lesions Rashes: no rashes Neuro General: alert and awake Cognition: normal cognition Speech: speech normal Motor: muscle tone normal throughout Extrem General: normal to inspection and capillary refill normal Psych Appearance: grossly normal and well kempt Course Orders Ordered: ED Orders 06/08/19 13:18 Complete Blood Count AUTO DIFF Stat Comprehensive Metabolic Panel Stat Lipase Stat Partial Thromboplastin Time Stat Prothrombin Time INR Stat 06/08/19 13:45 Urine Culture Stat Urine Microscopic Stat Discontinued Medications Ondansetron HCl (Zofran Odt) 4 mg PO NOW ONE Stop: 06/08/19 12:26 Last Admin: 06/08/19 12:29 Dose: 4 mg Documented by: JENNIFER Vital Signs Vital signs: Vital Signs - 8 hr 06/08/19 12:08 06/08/19 13:26 Temperature 98.1 F Pulse Rate 83 70 Respiratory Rate 14 18 Blood Pressure 147/87 H Blood Pressure [Right Arm] 152/92 H Pulse Oximetry 100 98 Medical Decision Making Lab Data Lab results reviewed: Yes I reviewed the patient's lab results. Result diagrams: 06/08/19 13:18 06/08/19 13:18 Labs: Lab Results 06/08/19 06/08/19 06/08/19 Range/Units 13:18 13:18 13:18 WBC 5.7 (4.5-11.0) X10^3/uL RBC 4.64 (4.5-5.9) X10^6/uL Hgb 14.4 (13.5-17.5) g/dL Hct 42.8 (41-53) % MCV 92.3 (80-100) fL MCH 31.0 (26-34) PG MCHC 33.6 (30-36) % RDW 14.5 (11.6-14.8) % Plt Count 258 (150-400) X10^3/uL Neut % (Auto) 68.0 (50-75) % Lymph % (Auto) 18.7 L (25-40) % [place] % (Auto) 10.5 (3-14) % Eos % (Auto) 1.9 L (2-4) % Baso % (Auto) 0.9 (0-2) % Neut # (Auto) 3900 (4269-7702) /uL Lymph # (Auto) 1100 (7187-8909) /uL [place] # (Auto) 600 (0-900) /uL Eos # (Auto) 100 (0-450) /uL Baso # (Auto) 100 (0-100) /uL PT 9.7 L (10.1-12.7) SECONDS INR 0.8 L (0.9-1.3) APTT 21 L D (26.4-36.2) SECONDS Sodium 141 (137-145) mmol/L Potassium 4.6 (3.4-5.1) mmol/L Chloride 103 (98-107) mmol/L Carbon Dioxide 26 (22-32) mmol/L BUN 11 (9-20) mg/dL Creatinine 0.80 (0.66-1.25) mg/dL Estimated GFR > 60.0 (>60) mL/min BUN/Creatinine Ratio 13.8 (6-22) Glucose 77 L (80-110) mg/dL Calcium 9.5 (8.4-10.2) mg/dL Total Bilirubin 0.9 (0.2-1.3) mg/dL AST 37 (17-59) IU/L ALT 12 L (21-72) IU/L Alkaline Phosphatase 77 (38-126) U/L Total Protein 8.6 H (6.3-8.2) g/dL Albumin 5.1 H (3.5-5.0) g/dL Globulin 3.5 (1.7-4.1) g/dL Albumin/Globulin Ratio 1.5 (1.0-2.8) Lipase 107 D (23-300) U/L Urine RBC (0-5/HPF) Urine WBC (0-5/HPF) Ur Squamous Epith Cells (0-5/HPF) Amorphous Sediment Urine Bacteria (None) Ur Culture Indicated? 06/08/19 Range/Units 13:45 WBC (4.5-11.0) X10^3/uL RBC (4.5-5.9) X10^6/uL Hgb (13.5-17.5) g/dL Hct (41-53) % MCV (80-100) fL MCH (26-34) PG MCHC (30-36) % RDW (11.6-14.8) % Plt Count (150-400) X10^3/uL Neut % (Auto) (50-75) % Lymph % (Auto) (25-40) % [place] % (Auto) (3-14) % Eos % (Auto) (2-4) % Baso % (Auto) (0-2) % Neut # (Auto) (8351-1862) /uL Lymph # (Auto) (4061-8816) /uL [place] # (Auto) (0-900) /uL Eos # (Auto) (0-450) /uL Baso # (Auto) (0-100) /uL PT (10.1-12.7) SECONDS INR (0.9-1.3) APTT (26.4-36.2) SECONDS Sodium (137-145) mmol/L Potassium (3.4-5.1) mmol/L Chloride (98-107) mmol/L Carbon Dioxide (22-32) mmol/L BUN (9-20) mg/dL Creatinine (0.66-1.25) mg/dL Estimated GFR (>60) mL/min BUN/Creatinine Ratio (6-22) Glucose (80-110) mg/dL Calcium (8.4-10.2) mg/dL Total Bilirubin (0.2-1.3) mg/dL AST (17-59) IU/L ALT (21-72) IU/L Alkaline Phosphatase (38-126) U/L Total Protein (6.3-8.2) g/dL Albumin (3.5-5.0) g/dL Globulin (1.7-4.1) g/dL Albumin/Globulin Ratio (1.0-2.8) Lipase (23-300) U/L Urine RBC >100/hpf (0-5/HPF) Urine WBC 1-5/hpf (0-5/HPF) Ur Squamous Epith Cells 1-5 /hpf (0-5/HPF) Amorphous Sediment 1+ Urine Bacteria Occasional (0-1) (None) Ur Culture Indicated? Specimen cultured Urine Dip Bedside Urine Glucose Negative Bedside Urine Bilirubin - Negative Bedside Urine Ketone - Negative Urine Specific [place] 1.005 Bedside Urine Occult Blood +++ Bedside Urine pH 8.0 Bedside Urine Protein - Negative Bedside Urine Urobilinogen +/- 1mg Bedside Urine Nitrite - Negative Bedside Urine Leukocytes +/- 15 Esterase Point of care testing: Urine Dip Bedside Urine Glucose Negative Bedside Urine Bilirubin - Negative Bedside Urine Ketone - Negative Urine Specific [place] 1.005 Bedside Urine Occult Blood +++ Bedside Urine pH 8.0 Bedside Urine Protein - Negative Bedside Urine Urobilinogen +/- 1mg Bedside Urine Nitrite - Negative Bedside Urine Leukocytes +/- 15 Esterase MDM Narrative Medical decision making narrative: Patient has generalized abdominal tenderness but does not have an acute abdomen. His lipase is better today. He had a CT scan done 9 days ago which did not show any kidney stones. He has hematuria however I have low suspicion that he has developed a kidney stone in the past 9 days. No signs of urinary tract infection. Patient was asking for pain medication. Informed him that unfortunately we cannot refill his pain medication. Told him that he did need to establish care with a primary provider for follow-up. He was given phone number for this. Informed her that he pro bably should continue with his GI appointment that is coming up. Also informed him that he would probably benefit from seeing a urologist given his hematuria. He asked for pain medication here in the emergency department. I offered Tylenol ibuprofen which he declined. He then asked for tramadol. I once again informed him that unfortunately any further pain management with opioid pain medication needs to come from his primary provider. He expressed understanding agreement plan. Discharge Plan Departure Patient Disposition: Home Clinical Impression: Abdominal pain Qualifiers: Abdominal location: generalized Qualified Code(s): R10.84 - Generalized abdominal pain Hematuria Qualifiers: Hematuria type: unspecified type Qualified Code(s): R31.9 - Hematuria, unspecified Discharge Date/Time: 06/08/19 14:14 Instructions: DI for Abdominal Pain-Adult, DI for Hematuria Activity Restrictions/Additional Instructions: It is important that you establish care with a primary provider. You can call the health human resources partner here at the hospital at [phone]. Also recommend you keep all of your scheduled medical appointments. I also recommend that you follow up with a urologist because of the blood in your urine. You can take Tylenol and ibuprofen for any discomfort. Unfortunately the emergency department cannot write you any more pain medication. Return to the emergency department for any new symptoms Prescriptions: No Action tamsulosin [Flomax] 0.4 mg capsule 0.4 mg PO DAILY Qty: 5 RF: 0 ondansetron 4 mg tablet,disintegrating 4 mg PO Q6H PRN (Reason: nausea and vomiting) Qty: 14 RF: 0 hydrocodone-acetaminophen [[place]] 5-325 mg tablet 1 tab PO Q8H PRN (Reason: pain) Qty: 6 RF: 0
[2019-06-08] MEDS: ONDANSETRON 4 MG ODT PO (12:29)
[2019-06-08 13:26] VITALS: BP 152/92; PULSE 70; RESP 18; O2SAT 98
[2019-06-08 13:29] LABS: Add Manual Diff / Slide Review NO; Basophils Absolute Auto 100 /uL (0-100); Basophils Percent Auto 0.9 % (0-2); Eosinophils Absolute Auto 100 /uL (0-450); Eosinophils Percent Auto 1.9 % (2-4); Hematocrit 42.8 % (41-53); Hemoglobin 14.4 g/dL (13.5-17.5); Lymphocytes Absolute Auto 1100 /uL (1100-4500); Lymphocytes Percent Auto 18.7 % (25-40); Mean Corpuscular HGB Conc 33.6 % (30-36); Mean Corpuscular Volume 92.3 fL (80-100); Monocytes Absolute Auto 600 /uL (0-900); Monocytes Percent Auto 10.5 % (3-14); Neutrophils Absolute Auto 3900 /uL (1500-7000); Platelet Count 258 X10^3/uL (150-400); Red Blood Cell Count 4.64 X10^6/uL (4.5-5.9); Red Cell Distribution Width 14.5 % (11.6-14.8); White Blood Cell Count 5.7 X10^3/uL (4.5-11.0)
[2019-06-08 13:33] LABS: INR 0.8 (0.9-1.3); Prothrombin Time 9.7 SECONDS (10.1-12.7)
[2019-06-08 13:35] LABS: PTT Partial Thromboplastin Tim 21 SECONDS (26.4-36.2)
[2019-06-08 13:39] LABS: Alanine Aminotransferase 12 IU/L (21-72); Albumin 5.1 g/dL (3.5-5.0); Albumin Globulin Ratio 1.5 (1.0-2.8); Alkaline Phosphatase 77 U/L (38-126); Aspartate Aminotransferase 37 IU/L (17-59); BUN Creatinine Ratio 13.8 (6-22); Bilirubin Total 0.9 mg/dL (0.2-1.3); Blood Urea Nitrogen 11 mg/dL (9-20); Calcium 9.5 mg/dL (8.4-10.2); Carbon Dioxide 26 mmol/L (22-32); Chloride 103 mmol/L (98-107); Estimated Glomerular Filt Rate > 60.0 mL/min (>60); Globulin 3.5 g/dL (1.7-4.1); Glucose 77 mg/dL (80-110); Lipase 107 U/L (23-300); Sodium 141 mmol/L (137-145); Total Protein 8.6 g/dL (6.3-8.2)
[2019-06-08 13:41] LABS: HEMOLYSIS 92 (0-50)
[2019-06-08 13:42] LABS: Potassium 4.6 mmol/L (3.4-5.1)
[2019-06-08 13:53] LABS: Amorphous Sediment Urine 1+; Bacteria Urine Occasional (0-1); Culture Indicated Urine Specimen Cultured; RBC Urine >100/HPF (0-5/HPF); Squamous Epithelial Cell Urine 1-5 /HPF (0-5/HPF); WBC Urine 1-5/HPF (0-5/HPF)
== END 2019-06-08 14:14 | disposition home or self-care (01) ==
PROVIDERS: Emergency Provider Emergency Medicine
DX: R10.84 Generalized abdominal pain (principal); R31.9 Hematuria, unspecified
CPT/HCPCS: 36415; 80053; 81003; 81015; 83690; 85025; 85610; 85730; 87077; 87086; 87186; 99282; 99283